=== PATIENT | female | born 1950 | race Caucasian/White ===

== ENCOUNTER → 2016-04-04 | Outpatient (CLI) | payer OTHER ==
--- NOTE | 2016-04-04 18:44 | DX ---
DEXA Bone Mineral Densitometry Clinical Indications: Postmenopausal, wrist and tibia fracture, follow-up osteoporosis Comparison: July 01, 2014 (osteoporosis) Technique: Bone Mineral Densitometry (BMD) by Dual Energy X-Ray Absorptiometry (DEXA) was performed utilizing the [email or web address] scanner. The lumbar spine was evaluated in the AP projection. The bilat eral hips and forearm were evaluated in the AP projection. Vertebral fracture assessment was also pe rformed. AP Lumbar Spine: The L1 and L2 vertebral bodies were evaluated. L3 and L4 are excluded due to degene rative sclerosis. BMD: 0.863 gm/cm2 T-score: -2.6 SD Z-score: -0.6 SD No significant change in L1 and L2. AP Left Hip: Neck BMD: 0.808 gm/cm2 T-score: -1.7 SD Z-score: 0.1 SD No significant change in total BMD AP Right Hip: Neck BMD: 0.791 gm/cm2 T-score: -1.8 SD Z-score: 0 SD No significant change in total BMD AP Right Forearm, 02/27: BMD: 0.619 gm/cm2 T-score: -2.9 SD Z-score: -1.5 SD No significant change Vertebral Fracture Assessment: No significant fracture deformity. Degenerative sclerosis in the lumb ar spine likely increases lumbar BMD. Conclusion: Considering the lowest measured site, the patient remains osteoporotic and at increased risk for fracture. Since the forearm is the lowest measured site, it would be worthwhile to exclude h yperparathyroidism. The ten year FRAX risk for any major osteoporotic fracture , which excludes the risk for a wrist frac ture, is 14.2% and for a hip fracture is 2.1%. Consider excluding secondary metabolic causes of bone loss (reported to be present in as many as 30% of patients with normal Z scores). Basic laboratory evaluation might include blood chemistries (calci um, phosphorus, alkaline phosphatase, liver function tests, creatinine, total protein), complete bloo d count, serum 25-OH- vitamin D3 level, 24-hour urine calcium, serum TSH and serum PTH. Targeted l aboratory testing based on individual patient circumstances might include serum electrophoresis (SPEP or UPEP), anti-tissue transglutaminase antibody levels (celiac disease) , serum bone specific alkal ine phosphatase, bone turnover markers (urine, serum) or fibroblast growth factor 23 (FGF 23)(evaluat e for unexplained osteomalacia). If secondary causes are excluded, then consider initiating treatment with a bisphosphonate (such as F osamax, Actonel or Boniva). If the patient is unable to use an oral bisphosphonate, another agent suc h as IV bisphosphonates (Boniva or Reclast), teriparatide (Forteo), a selective estrogen receptor mo dulator (Evista) or Denosumab ( anti RANKL monoclonal antibody) might be considered. If antiresorptive therapy is initiated and if clinically indicated, consider obtaining a baseline and 3 month followup bone resorption marker (NTX, CTX, TRAP5b or Pyridinoline, deoxypyridinoline) to mon itor the therapeutic effect. Supplementing an insufficient diet to achieve total intakes of 1500 mg calcium and 800 International Units of vitamin D daily should be considered. Osteoporosis prevention and treatment begins by modify ing risk factors. The patient should be encouraged to participate in a regular exercise program that includes weightbearing and muscle strengthening regimens, as is clinically appropriate. Recommend follow-up DEXA in one year to assess the efficacy of pharmacologic intervention and/or abigail ection of appropriate secondary cause.
== END ==
LOC: BRMIMAGING 10:47
PROVIDERS: ATTEND Internal Medicine
DX: Z13.820 Encounter for screening for osteoporosis (principal); M81.0 Age-related osteoporosis without current pathological fracture; Z78.0 Asymptomatic menopausal state

== ENCOUNTER → 2017-02-01 | Outpatient (CLI) | payer OTHER | LOC: FIMAGING 15:04 → MERGE 15:04 | PROVIDERS: ATTEND Internal Medicine | DX: Z12.31 Encounter for screening mammogram for malignant neoplasm of breast (principal) | CPT/HCPCS: G0202 ==

== ENCOUNTER → 2018-03-13 | Outpatient (CLI) | payer OTHER | LOC: FIMAGING 14:03 | PROVIDERS: ATTEND Internal Medicine | DX: Z12.31 Encounter for screening mammogram for malignant neoplasm of breast (principal) ==

== ENCOUNTER → 2018-06-20 | Outpatient (CLI) | payer OTHER | LOC: BMCIMAGING 09:42 | PROVIDERS: ATTEND Internal Medicine | DX: Z13.820 Encounter for screening for osteoporosis (principal); M85.89 Other specified disorders of bone density and structure, multiple sites; Z78.0 Asymptomatic menopausal state ==